=== PATIENT | male | born 1995 | race African-American/Black ===

== ENCOUNTER 2018-04-14 13:21 | Emergency (ER) | payer SELFPAY ==
[~2018-04-14] VITALS: Ht 175.3 cm; Wt 79.4 kg
[2018-04-14] MEDS: IV NORMAL SALINE 1000ML BAG 1,000 ML IV ONE ×2 (15:20→16:00)
[2018-04-14] MEDS: ONDANSETRON PF 4 MG/2 ML VIAL. IV ONE (15:21)
[2018-04-14] MEDS: ACETAMINOPHEN 500 MG TABLET PO ONE (15:21)
--- NOTE | 2018-04-14 15:37 | PHYS DOC ---
Adult General Chief Complaint Chief Complaint: FLU SYMPTOM HPI HPI Patient is a 22 year old male who presents to the ER for evaluation of nasal congestion, fever, myalgias. Patient does state that he got the flu vaccination. Patient reports vomiting this morning. Patient denies any abdominal pain or diarrhea. Onset of symptoms yesterday. Took tylenol 1000mg this am. No recent foreign travel. Review of Systems Review of Systems Constitutional: Fever and chills present Eyes: Denies change in visual acuity, redness, or eye pain [] HENT: Denies nasal congestion or sore throat [] Respiratory: no SOB, cough present Cardiovascular: no chest pain, no orthopnea, no LE edema GI: Denies abdominal pain, denies diarrhea, Nausea and vomiting present : Denies dysuria or hematuria [] Musculoskeletal: Denies back pain or joint pain []myalgias present Integument: Denies rash or skin lesions [] Neurologic: Denies headache, focal weakness or sensory changes [] Endocrine: Denies polyuria or polydipsia [] All other systems were reviewed and found to be within normal limits, except as documented in this note. Current Medications Current Medications Current Medications Medications (Trade) Dose Ordered Sig/Esther Start Time Stop Time Status Last Admin Dose Admin Acetaminophen (Tylenol) 1,000 mg 1X ONCE 04/14/18 14:00 04/14/18 14:59 DC 04/14/18 15:21 1,000 MG Ibuprofen (Motrin) 800 mg 1X ONCE 04/14/18 15:45 04/14/18 15:46 DC 04/14/18 15:52 800 MG Ondansetron HCl (Zofran) 8 mg 1X ONCE 04/14/18 14:00 04/14/18 14:59 DC 04/14/18 15:21 8 MG Sodium Chloride 1,000 ml @ 1,000 mls/hr 1X ONCE 04/14/18 14:00 04/14/18 14:59 DC 04/14/18 15:20 1,000 MLS/HR Allergies Allergies Allergies Coded Allergies Type Severity Reaction Last Updated Verified No Known Drug Allergies 04/14/18 No Physical Exam Physical Exam Constitutional: Well developed, well nourished HENT: Normocephalic, atraumatic Eyes: PERRLA, EOMI, HEENT: Normal oropharynx, mild fluid behind bilateral tympanic membranes no erythema. Phonation clear Neck: no stridor. [] Cardiovascular:Tachycardic, no murmur [] Lungs & Thorax: Bilateral breath sounds clear to auscultation [] Abdomen: Bowel sounds normal, soft, no tenderness, no masses, no pulsatile masses. [] Skin: Warm, dry, no erythema, no rash. [] Extremities: ROM intact, no edema. [] Neurologic: Alert and oriented X 3, no focal deficits noted. [] Psychologic: Affect normal, judgement normal, mood normal. [] Current Patient Data Vital Signs Vital Signs Date Time Temp Pulse Resp B/P (MAP) Pulse Ox O2 Delivery O2 Flow Rate FiO2 04/14/18 15:37 103.1 115 20 105/55 (72) 100 103.1 Lab Values Laboratory Tests Test 04/14/18 15:01 Influenza Type A Antigen Negative (NEGATIVE) Influenza Type B Antigen Negative (NEGATIVE) EKG EKG [] Radiology/Procedures Radiology/Procedures [] Course & Med Decision Making Course & Med Decision Making Pertinent Labs and Imaging studies reviewed. (See chart for details) []1600: Feeling better. Temp 100.7 time. Flu swab negative. Patient tolerating PO. Symptoms consistent with URI at this time. Bilateral/equal breath sounds. No coughing today. Patient recently traveled from [facility]. Patient does not seem to have symptoms consistent with anything other than a URI at this time. Discussed increased risk for other pathology. Advised watchful waiting at this time and close PCP follow-up. Dragon Disclaimer Dragon Disclaimer This electronic medical record was generated, in whole or in part, using a voice recognition dictation system. Departure Departure Impression: Primary Impression: URI (upper respiratory infection) Additional Impression: Fever Disposition: HOME, SELF-CARE Condition: IMPROVED Referrals: NO PCP (PCP) Patient Instructions: Upper Respiratory Infection, Adult Additional Instructions: Thank you for coming to [facility]. Please repeat the attached handouts. Please follow-up with your primary care physician. Return to the ER if your symptoms worsen or you have any other concerns. Please establish care with a primary care physician. Take ibuprofen 600 mg 3 times a day with food for fever management. You can alternate this with Tylenol 1000 mg every 6 hours. Problem Qualifiers NORMA LARSON DO Apr 14, 2018 15:37
[2018-04-14 15:42] LABS: INFLUENZA A PATIENT NEGATIVE (NEGATIVE); INFLUENZA B PATIENT NEGATIVE (NEGATIVE)
[2018-04-14] MEDS: IBUPROFEN 400 MG TABLET. PO ONE (15:52)
[2018-04-14 17:35] VITALS: BP 101/55
== END 2018-04-14 17:41 | disposition home or self-care (01) ==
LOC: ER 13:21
DX: J06.9 Acute upper respiratory infection, unspecified (principal); R11.10 Vomiting, unspecified; R00.0 Tachycardia, unspecified; M79.18 Myalgia, other site; R50.9 Fever, unspecified
CPT/HCPCS: 87804; 96361; 96374; 99285; J2405; J7030; 99284